=== PATIENT | female | born 1955 | race Caucasian/White ===

== ENCOUNTER → 2017-05-20 | Outpatient (CLI) | payer OTHER ==
--- NOTE | ~2017-05-20 | CR181 ---
[facility] A Service of [facility] & [facility] RADIOLOGY TEXT RESULTS PATIENT: TAMERA MILIAN LOCATION: [facility] : 53 UNIT #: [id number] AGE: [address]: SERGEI ANNA SEX: F ORDER DR: [id number] [facility] [address] [place], [place] [address] [id number] O MR#: [id number] Acc #: [id number] NAME: TAMERA MILIAN : 1955 SEX: F STUDY DATE/TIME: 05/20/2017 16:16 UNIT: [facility] ROOM: STUDY DESCRIPTION: CR Lumbar Spine 2 or 3 Views Attending Physician: Jackie Kingston Referring Physician: Jackie Kingston Ordering Physician: Dona Humphreys M.D. Primary Care Physician: Dona Humphreys M.D. MEDICAL IMAGING REPORT This report is preliminary unless electronic signature is present EXAM Lumbar spine 05/20 INDICATIONS Low back pain since fall 04/27/2017 but worse today. FINDINGS Three views of the lumbar spine are compared with 10/27/2007. There is levoscoliosis measuring about 11 degrees. No acute fractures are seen. There is multilevel degenerative disc disease and facet arthropathy, progressively worsened in the interval. Disc disease is least severe at L5-S1. Mild retrolisthesis of L3-L4 is stable. IMPRESSION Progressive degenerative disease. No acute fracture. Dictated by... Wojciech Ibarra Jr., M.D. THIS IS AN ELECTRONICALLY VERIFIED REPORT Wojciech Ibarra Jr., M.D. at 05/22/2017 2:08 PM YAAKOV/adelaide TD: 05/21/2017 09:46 JOB #: [id number] MEDICAL IMAGING REPORT Page 1 of 1 COPY
--- NOTE | ~2017-05-20 | CR230 ---
[facility] A Service of [facility] & [facility] RADIOLOGY TEXT RESULTS PATIENT: TAMERA MILIAN LOCATION: [facility] : 53 UNIT #: [id number] AGE: [address]: SERGEI ANNA SEX: F ORDER DR: [id number] [facility] [address] [place], [place] [address] [id number] O MR#: [id number] Acc #: [id number] NAME: TAMERA MILIAN : 1955 SEX: F STUDY DATE/TIME: 05/20/2017 16:17 UNIT: [facility] ROOM: STUDY DESCRIPTION: CR Shoulder Min 2 View Rt Attending Physician: Jackie Kingston Referring Physician: Jackie Kingston Ordering Physician: Dona Humphreys M.D. Primary Care Physician: Dona Humphreys M.D. MEDICAL IMAGING REPORT This report is preliminary unless electronic signature is present EXAM Right shoulder 05/20/2017 HISTORY 61-year-old female with right shoulder pain status post fall 04/27/2017. COMPARISON none. FINDINGS 3 views the right shoulder demonstrate no acute fracture or dislocation. Mild degenerative change of the acromioclavicular joint. Soft tissues are unremarkable. IMPRESSION No acute fracture or dislocation. Some mild acromioclavicular joint arthrosis. Dictated by... Jerald Nick M.D. THIS IS AN ELECTRONICALLY VERIFIED REPORT Jerald Nick M.D. at 05/22/2017 10:18 AM APOORVA/patrice TD: 05/21/2017 11:32 JOB #: [id number] MEDICAL IMAGING REPORT Page 1 of 1 COPY
--- NOTE | ~2017-05-20 | CR58 ---
[facility] A Service of [facility] & [facility] RADIOLOGY TEXT RESULTS PATIENT: TAMERA MILIAN LOCATION: [facility] : 53 UNIT #: [id number] AGE: [address]: SERGEI ANNA SEX: F ORDER DR: [id number] [facility] [address] [place], [place] [address] [id number] O MR#: [id number] Acc #: [id number] NAME: TAMERA MILIAN : 1955 SEX: F STUDY DATE/TIME: 05/20/2017 16:17 UNIT: [facility] ROOM: STUDY DESCRIPTION: CR Cervical Spine 2 or 3 Views Attending Physician: Jackie Kingston Referring Physician: Jackie Kingston Ordering Physician: Dona Humphreys M.D. Primary Care Physician: Dona Humphreys M.D. MEDICAL IMAGING REPORT This report is preliminary unless electronic signature is present EXAM Cervical spine 05/20 INDICATIONS Neck pain and left shoulder pain since fall 04/27/2017, but worse today. FINDINGS Five views of the cervical spine were obtained. No comparison. There is grade 1 anterolisthesis of C3 on C4. There is degenerative disc disease at essentially all of the visualized levels, most severe at C5-6. There is multilevel facet arthropathy. No acute fractures are seen. Prevertebral soft tissues are normal. IMPRESSION Multilevel degenerative disc disease and facet arthropathy with mild spondylolisthesis at 3-4. No fractures are seen. Dictated by... Wojciech Ibarra Jr., M.D. THIS IS AN ELECTRONICALLY VERIFIED REPORT Wojciech Ibarra Jr., M.D. at 05/22/2017 2:08 PM YAAKOV/adelaide TD: 05/21/2017 09:49 JOB #: [id number] MEDICAL IMAGING REPORT Page 1 of 1 COPY
== END | disposition home or self-care (01) ==
LOC: CRAD 15:25
DX: M54.5 Low back pain (principal); M54.2 Cervicalgia; M25.511 Pain in right shoulder; M51.36 Other intervertebral disc degeneration, lumbar region; M50.322 Other cervical disc degeneration at C5-C6 level; M43.12 Spondylolisthesis, cervical region; M19.011 Primary osteoarthritis, right shoulder
CPT/HCPCS: 72040; 72100; 73030